=== PATIENT | male | born 1975 | race African-American/Black ===

== ENCOUNTER 2016-10-06 16:15 | Inpatient (IN) | payer OTHER ==
[2016-10-06 16:56] VITALS: BMI 25.0
--- NOTE | 2016-10-06 17:13 | HP ---
CIWA Score - CIWA Score Nausea/Vomitin-Mild Nausea/No Vomiting Muscle Tremors: 4-Moderate,w/Arms Extend Anxiety: 4-Mod. Anxious/Guarded Agitation: 4-Moderately Restless Paroxysmal Sweats: 1-Minimal Palms Moist Orientation: 3-Disoriented Date>2 days Tacttile Disturbances: 0-None Auditory Disturbances: 0-None Visual Disturbances: 0-None Headache: 0-None Present CIWA-Ar Total Score: 17 Admission ROS S - HPI Chief Complaint: withdrawal sx Allergies/Adverse Reactions: Allergies Allergy/AdvReac Type Severity Reaction Status Date / Time No Known Allergies Allergy Verified 10/24/15 11:36 History of Present Illness: 41 years old male with long history of alcohol nicotine dependence, denies medical denies psychiatric is admitted to detox Exam Limitations: No Limitations - Ebola screening Have you traveled outside of the country in the last 21 days: No (N) Have you had contact with anyone from an Ebola affected area: No Have you been sick,other than usual withdrawal symptoms: No Do you have a fever: No - Review of Systems Constitutional: Chills, Changes in sleep, Weight Stable EENT: reports: No Symptoms Reported Respiratory: reports: No Symptoms reported Cardiac: reports: No Symptoms Reported GI: reports: Nausea, Poor Fluid Intake, Abdominal cramping : reports: No Symptoms Reported Musculoskeletal: reports: No Symptoms Reported Integumentary: reports: No Symptoms Reported Neuro: reports: Tremors Endocrine: reports: No Symptoms Reported Hematology: reports: No Symptoms Reported Psychiatric: reports: Judgement Intact, Mood/Affect Appropiate Other Systems: Reviewed and Negative Patient History - Patient Medical History Hx Anemia: No Hx Asthma: No Hx Chronic Obstructive Pulmonary Disease (COPD): No Hx Cancer: No Hx Cardiac Disorders: No Hx Congestive Heart Failure: No Hx Hypertension: No (DUE TO DRINKING; NOW 152/103--NOT ON MEDS) Hx Hypercholesterolemia: No Hx Pacemaker: No HX Cerebrovascular Accident: No Hx Seizures: No Hx Dementia: No Hx Diabetes: No Hx Gastrointestinal Disorders: No (HEARTBURN-NOT ON MED) Hx Liver Disease: No Hx Genitourinary Disorders: No Hx Sexually Transmitted Disorders: No Hx Renal Disease (ESRD): No Hx Thyroid Disease: No Hx Human Immunodeficiency Virus (HIV): No (NEGATIVE HX) Hx Hepatitis C: No Hx Depression: No Hx Suicide Attempt: No (DENIES) Hx Bipolar Disorder: No Hx Schizophrenia: No - Patient Surgical History Past Surgical History: Yes Hx Neurologic Surgery: No Hx Cataract Extraction: No Hx Cardiac Surgery: No Hx Lung Surgery: No Hx Breast Surgery: No Hx Breast Biopsy: No Hx Abdominal Surgery: No Hx Appendectomy: No Hx Cholecystectomy: No Hx Genitourinary Surgery: No Hx Orthopedic Surgery: Yes (bilateral rotator cuff 1993) Anesthesia Reaction: No - PPD History Previous Implant?: Yes Documented Results: Negative w/proof Implanted On Prior [facility] Admission?: Yes Date: 10/26/15 Results: TBD PPD to be Administered?: No - Smoking Cessation Smoking history: Current every day smoker Have you smoked in the past 12 months: Yes Aproximately how many cigarettes per day: 10 Cigars Per Day: 0 Hx Chewing Tobacco Use: No Initiated information on smoking cessation: Yes 'Breaking Loose' booklet given: 10/06/16 - Substance & Tx. History Hx Alcohol Use: Yes Hx Substance Use: No Substance Use Type: Alcohol Hx Substance Use Treatment: Yes - Substances Abused Alcohol Route: Oral Frequency: Daily Amount used: 2 pints volka Age of first use: 16 Date of Last Use: 10/06/16 Family Disease History - Family Disease History Family Disease History: Diabetes: Grandparent, Other: Mother (HTN-) Admission Physical Exam BHS - Vital Signs Vital Signs: Vital Signs - 24 hr 10/06/16 16:54 Temperature 98.0 F Pulse Rate 93 H Respiratory 18 Rate Blood Pressure 163/113 - Physical General Appearance: Yes: Nourished, Appropriately Dressed, Moderate Distress, Tremorous, Irritable, Sweating, Anxious HEENTM: Yes: Hearing grossly Normal, Normal ENT Inspection, Normocephalic, Normal Voice Respiratory: Yes: Chest Non-Tender, Lungs Clear, Normal Breath Sounds, No Respiratory Distress, No Accessory Muscle Use Neck: Yes: Supple, Trachea in good position Breast: Yes: Breasts Symetrical Cardiology: Yes: Regular Rhythm, S1, S2, Tachycardia Abdominal: Yes: Non Tender, Soft Genitourinary: Yes: Within Normal Limits Back: Yes: Normal Inspection Musculoskeletal: Yes: full range of Motion, Gait Steady Extremities: Yes: Normal Inspection, Normal Range of Motion, Non-Tender, Tremors Neurological: Yes: Alert, Motor Strength 5/5, Normal Mood/Affect, Normal Response Integumentary: Yes: Warm Lymphatic: Yes: Within Normal Limits - Diagnostic (1) Alcohol dependence with uncomplicated withdrawal Current Visit: Yes Status: Acute (2) Nicotine dependence Current Visit: Yes Status: Acute Qualifiers: Nicotine product type: cigarettes Substance use status: in withdrawal Qualified Code(s): F17.213 - Nicotine dependence, cigarettes, with withdrawal (3) Hypertension Current Visit: Yes Status: Acute Qualifiers: Hypertension type: unspecified secondary hypertension Qualified Code (s): I15.9 - Secondary hypertension, unspecified; I15 - Secondary hypertension Comment: alcohol withdrawal related hypertension clonidine prn Cleared for Admission [facility] - Detox or Rehab [facility] Level of Care: Medically Managed Detox Regimen/Protocol: Librium S Breath Alcohol Content Breath Alcohol Content: 0 Urine Drug Screen - Results Drug Screen Negative: Yes
[2016-10-06] MEDS ORDERED: IBUPROFEN 400 MG TABLET (FP) PO PRN (17:20)
[2016-10-06] MEDS ORDERED: LOPERAMIDE HCL 2 MG CAPSULE PO PRN (17:20)
[2016-10-06] MEDS ORDERED: guaiFENesin/D-METHORPHAN HB 10 ML UNIT-DOSE CUPS PO PRN (17:20)
[2016-10-06] MEDS ORDERED: MAG HYDROX/AL HYDROX/SIMETH 30 ML UNIT-DOSE CUP PO PRN (17:20)
[2016-10-06] MEDS ORDERED: MENTHOL/PHENOL 1 EACH UD MM PRN (17:20)
[2016-10-06] MEDS ORDERED: chlordiazePOXIDE HCL 25 MG CAPSULE PO PRN (17:20)
[2016-10-06] MEDS ORDERED: ACETAMINOPHEN 325 MG TABLET (FP) PO PRN (17:20)
[2016-10-06] MEDS ORDERED: MAGNESIUM CITRATE 300 ML BOTTLE PO PRN (17:20)
[2016-10-06] MEDS ORDERED: P-EPHED 60MG/TRIPROLIDI 2.5MG TABLET PO PRN (17:20)
[2016-10-06] MEDS ORDERED: NICOTINE POLACRILEX 2 MG GUM BC PRN (17:20)
[2016-10-06] MEDS ORDERED: hydrOXYzine PAMOATE 50 MG CAPSULE (FP) PO PRN (17:20)
[2016-10-06] MEDS ORDERED: MAGNESIUM HYDROX 2400MG/30ML ORAL SUSPENSION 30 ML CUP PO PRN (17:20)
[2016-10-06] MEDS ORDERED: chlordiazePOXIDE HCL 25 MG CAPSULE PO ONE (18:15)
[2016-10-06] MEDS: cloNIDine HCL 0.1 MG TABLET PO PRN (18:42)
[2016-10-06] MEDS: chlordiazePOXIDE HCL 25 MG CAPSULE PO SCH (22:28)
[2016-10-06] MEDS: THIAMINE HCL 100 MG TABLET (FP) PO SCH (22:28)
[2016-10-06 23:34] LABS: URINE APPEARANCE CLEAR; URINE BILIRUBIN NEGATIVE (NEGATIVE); URINE BLOOD NEGATIVE (NEGATIVE); URINE COLOR YELLOW; URINE GLUCOSE (UA) NEGATIVE (NEGATIVE); URINE KETONE 1+ (NEGATIVE); URINE LEUK ESTERASE NEGATIVE (NEGATIVE); URINE NITRITE NEGATIVE (NEGATIVE); URINE PROTEIN NEGATIVE (NEGATIVE); URINE UROBILINOGEN NEGATIVE E.U./dl (0.2-1.0)
[2016-10-07] MEDS: chlordiazePOXIDE HCL 25 MG CAPSULE PO SCH ×4 (05:34→22:31)
[2016-10-07 10:06] LABS: MCH 31.5 pg (25.7-33.7); MCHC 32.9 g/dl (32.0-35.9); MEAN CELL VOLUME 95.7 fl (80-96); MEAN PLT VOLUME 8.2 fl (7.5-11.1); PLATELET COUNT 172 K/MM3 (134-434); RDW 13.8 % (11.9-15.9); WHITE BLOOD COUNT 3.7 K/mm3 (4.0-10.0)
--- NOTE | 2016-10-07 10:25 | EKG ---
Test Reason : Blood Pressure : / mmHG Vent. Rate : 078 BPM Atrial Rate : 078 BPM P-R Int : 152 ms QRS Dur : 104 ms QT Int : 376 ms P-R-T Axes : 059 -44 030 degrees QTc Int : 428 ms NORMAL SINUS RHYTHM POSSIBLE LEFT ATRIAL ENLARGEMENT LEFT AXIS DEVIATION PULMONARY DISEASE PATTERN ABNORMAL ECG NO PREVIOUS ECGS AVAILABLE Confirmed by MIGUELINA MELÉNDEZ MD ([id number]) on 10/07/2016 10:25:01 AM Referred By: Confirmed By:MIGUELINA MELÉNDEZ MD
[2016-10-07] MEDS: cloNIDine HCL 0.1 MG TABLET PO PRN (10:41)
[2016-10-07] MEDS: PRENATAL VITAMINS W/ FOLIC ACID TABLET (FP) PO SCH (10:41)
[2016-10-07] MEDS: NICOTINE 14 MG/24 HOURS TOPICAL PATCH TD SCH (10:41)
[2016-10-07 10:55] LABS: ALBUMIN 3.8 g/dl (3.4-5.0); ALK PHOS 85 U/L (45-117); ANION GAP 9 (8-16); BILIRUBIN,TOTAL 1.1 mg/dL (0.2-1.0); CALCIUM 8.8 mg/dL (8.5-10.1); CO2 28 mmol/L (21-32); COCKROFT - GAULT 144.22; CREATININE 0.8 mg/dL (0.7-1.3); GLUCOSE,RANDOM 89 mg/dL (74-106); SGOT/AST 37 U/L (15-37); SGPT/ALT 31 U/L (12-78); TOT PROT 6.1 g/dl (6.4-8.2)
--- NOTE | 2016-10-07 11:24 | PN ---
[facility] CIWA - CIWA Score Nausea/Vomitin Muscle Tremors: 3 Anxiety: 3 Agitation: 2 Paroxysmal Sweats: 1-Minimal Palms Moist Orientation: 0-Oriented Tacttile Disturbances: 1-Very Mild Itch/Numbness Auditory Disturbances: 1-Very Mild Visual Disturbances: 1-Very Mild Sensitivity Headache: 2-Mild CIWA-Ar Total Score: 17 S Progress Note (SOAP) Subjective: ALERT,IRRITABLE,ANXIOUS,INTERRUPTED SLEEP,TREMOR Objective: 10/07/16 11:21 Vital Signs Temperature 98.4 F 10/07/16 10:12 Pulse Rate 78 10/07/16 10:12 Respiratory Rate 18 10/07/16 10:12 Blood Pressure 143/100 10/07/16 10:16 O2 Sat by Pulse Oximetry (%) EKG NSR NO CHEST PAIN,NO SOB,NO DIZZINESS Laboratory Last Values WBC 3.7 K/mm3 (4.0-10.0) L D 10/07/16 07:00 RBC 4.61 M/mm3 (4.00-5.60) 10/07/16 07:00 Hgb 14.5 GM/dL (11.7-16.9) 10/07/16 07:00 Hct 44.1 % (35.4-49) 10/07/16 07:00 MCV 95.7 fl (80-96) 10/07/16 07:00 MCHC 32.9 g/dl (32.0-35.9) 10/07/16 07:00 RDW 13.8 % (11.9-15.9) 10/07/16 07:00 Plt Count 172 K/MM3 (134-434) 10/07/16 07:00 MPV 8.2 fl (7.5-11.1) 10/07/16 07:00 Sodium 139 mmol/L (136-145) 10/07/16 07:00 Potassium 4.1 mmol/L (3.5-5.1) 10/07/16 07:00 Chloride 102 mmol/L (98-107) 10/07/16 07:00 Carbon Dioxide 28 mmol/L (21-32) 10/07/16 07:00 Anion Gap 9 (8-16) 10/07/16 07:00 BUN 13 mg/dL (7-18) D 10/07/16 07:00 Creatinine 0.8 mg/dL (0.7-1.3) 10/07/16 07:00 Creat Clearance w eGFR > 60 (>60) 10/07/16 07:00 Random Glucose 89 mg/dL (74-106) 10/07/16 07:00 Calcium 8.8 mg/dL (8.5-10.1) 10/07/16 07:00 Total Bilirubin 1.1 mg/dL (0.2-1.0) H D 10/07/16 07:00 AST 37 U/L (15-37) D 10/07/16 07:00 ALT 31 U/L (12-78) D 10/07/16 07:00 Alkaline Phosphatase 85 U/L (45-117) 10/07/16 07:00 Total Protein 6.1 g/dl (6.4-8.2) L 10/07/16 07:00 Albumin 3.8 g/dl (3.4-5.0) 10/07/16 07:00 Urine Color Yellow 10/06/16 18:42 Urine Appearance Clear 10/06/16 18:42 Urine pH 5.0 (5.0-8.0) 10/06/16 18:42 Ur Specific [place] 1.025 (1.005-1.025) 10/06/16 18:42 Urine Protein Negative (NEGATIVE) 10/06/16 18:42 Urine Glucose (UA) Negative (NEGATIVE) 10/06/16 18:42 Urine Ketones 1+ (NEGATIVE) H 10/06/16 18:42 Urine Blood Negative (NEGATIVE) 10/06/16 18:42 Urine Nitrite Negative (NEGATIVE) 10/06/16 18:42 Urine Bilirubin Negative (NEGATIVE) 10/06/16 18:42 Urine Urobilinogen Negative E.U./dl (0.2-1.0) 10/06/16 18:42 Ur Leukocyte Esterase Negative (NEGATIVE) 10/06/16 18:42 Assessment: 10/07/16 11:22 WITHDRAWAL SYMPTOM Plan: CONTINUE DETOX,HISTORY OF HYPERTENSION,DYAZIDE 1 CAP PO DAILY,BP MONITORING
[2016-10-07] MEDS: TRIAMTERENE AND HCTZ - 37.5 MG/25 MG CAPSULE PO SCH (13:00)
[2016-10-07] MEDS: diphenhydrAMINE HCL 50 MG CAPSULE PO PRN (22:31)
[2016-10-07] MEDS: THIAMINE HCL 100 MG TABLET (FP) PO SCH (22:31)
[2016-10-08] MEDS: chlordiazePOXIDE HCL 25 MG CAPSULE PO SCH ×3 (05:33→17:14)
--- NOTE | 2016-10-08 10:09 | PN ---
S CIWA - CIWA Score Nausea/Vomitin-No Nausea/No Vomiting Muscle Tremors: 3 Anxiety: 4-Mod. Anxious/Guarded Agitation: 3 Paroxysmal Sweats: 3 Orientation: 0-Oriented Tacttile Disturbances: 0-None Auditory Disturbances: 0-None Visual Disturbances: 0-None Headache: 0-None Present CIWA-Ar Total Score: 13 BHS Progress Note (SOAP) Subjective: Sweating,interrupted sleep,restless,tremors,anxiety. Objective: 10/08/16 10:08 Vital Signs - 8 hr 10/08/16 10/08/16 10/08/16 03:23 06:12 09:28 Temperature 97.3 F L 96.7 F L Pulse Rate 69 82 Respiratory 18 18 18 Rate Blood Pressure 134/88 132/99 Laboratory Tests 10/06/16 10/07/16 10/07/16 18:42 07:00 07:00 WBC 3.7 L D RBC 4.61 Hgb 14.5 Hct 44.1 MCV 95.7 MCHC 32.9 RDW 13.8 Plt Count 172 MPV 8.2 Sodium 139 Potassium 4.1 Chloride 102 Carbon Dioxide 28 Anion Gap 9 BUN 13 D Creatinine 0.8 Creat Clearance w eGFR > 60 Random Glucose 89 Calcium 8.8 Total Bilirubin 1.1 H D AST 37 D ALT 31 D Alkaline Phosphatase 85 Total Protein 6.1 L Albumin 3.8 Urine Color Yellow Urine Appearance Clear Urine pH 5.0 Ur Specific [place] 1.025 Urine Protein Negative Urine Glucose (UA) Negative Urine Ketones 1+ H Urine Blood Negative Urine Nitrite Negative Urine Bilirubin Negative Urine Urobilinogen Negative Ur Leukocyte Esterase Negative RPR Titer 10/07/16 07:00 WBC RBC Hgb Hct MCV MCHC RDW Plt Count MPV Sodium Potassium Chloride Carbon Dioxide Anion Gap BUN Creatinine Creat Clearance w eGFR Random Glucose Calcium Total Bilirubin AST ALT Alkaline Phosphatase Total Protein Albumin Urine Color Urine Appearance Urine pH Ur Specific [place] Urine Protein Urine Glucose (UA) Urine Ketones Urine Blood Urine Nitrite Urine Bilirubin Urine Urobilinogen Ur Leukocyte Esterase RPR Titer Nonreactive labs noted Assessment: 10/08/16 10:08 Withdrawal sx. Plan: Continue detox
[2016-10-08] MEDS: cloNIDine HCL 0.1 MG TABLET PO PRN (10:42)
[2016-10-08] MEDS: NICOTINE 14 MG/24 HOURS TOPICAL PATCH TD SCH (10:42)
[2016-10-08] MEDS: PRENATAL VITAMINS W/ FOLIC ACID TABLET (FP) PO SCH (10:42)
[2016-10-08] MEDS: TRIAMTERENE AND HCTZ - 37.5 MG/25 MG CAPSULE PO SCH (10:42)
[2016-10-08] MEDS: THIAMINE HCL 100 MG TABLET (FP) PO SCH (22:32)
[2016-10-08] MEDS: diphenhydrAMINE HCL 50 MG CAPSULE PO PRN (22:32)
[2016-10-08] MEDS: chlordiazePOXIDE 5 MG CAPSULE PO SCH (22:33)
[2016-10-09] MEDS: chlordiazePOXIDE 5 MG CAPSULE PO SCH ×3 (05:27→17:21)
[2016-10-09] MEDS: TRIAMTERENE AND HCTZ - 37.5 MG/25 MG CAPSULE PO SCH (10:33)
[2016-10-09] MEDS: NICOTINE 14 MG/24 HOURS TOPICAL PATCH TD SCH (10:33)
[2016-10-09] MEDS: PRENATAL VITAMINS W/ FOLIC ACID TABLET (FP) PO SCH (10:33)
--- NOTE | 2016-10-09 13:59 | PN ---
BHS Progress Note (SOAP) Subjective: Sweating,interrupted sleep,restless. Objective: 10/09/16 13:58 Vital Signs - 8 hr 10/09/16 10/09/16 10/09/16 06:16 09:49 13:09 Temperature 97.6 F 96.5 F L 96.4 F L Pulse Rate 75 103 H 96 H Respiratory 18 18 20 Rate Blood Pressure 117/80 118/84 124/84 Laboratory Last Values WBC 3.7 K/mm3 (4.0-10.0) L D 10/07/16 07:00 RBC 4.61 M/mm3 (4.00-5.60) 10/07/16 07:00 Hgb 14.5 GM/dL (11.7-16.9) 10/07/16 07:00 Hct 44.1 % (35.4-49) 10/07/16 07:00 MCV 95.7 fl (80-96) 10/07/16 07:00 MCHC 32.9 g/dl (32.0-35.9) 10/07/16 07:00 RDW 13.8 % (11.9-15.9) 10/07/16 07:00 Plt Count 172 K/MM3 (134-434) 10/07/16 07:00 MPV 8.2 fl (7.5-11.1) 10/07/16 07:00 Sodium 139 mmol/L (136-145) 10/07/16 07:00 Potassium 4.1 mmol/L (3.5-5.1) 10/07/16 07:00 Chloride 102 mmol/L (98-107) 10/07/16 07:00 Carbon Dioxide 28 mmol/L (21-32) 10/07/16 07:00 Anion Gap 9 (8-16) 10/07/16 07:00 BUN 13 mg/dL (7-18) D 10/07/16 07:00 Creatinine 0.8 mg/dL (0.7-1.3) 10/07/16 07:00 Creat Clearance w eGFR > 60 (>60) 10/07/16 07:00 Random Glucose 89 mg/dL (74-106) 10/07/16 07:00 Calcium 8.8 mg/dL (8.5-10.1) 10/07/16 07:00 Total Bilirubin 1.1 mg/dL (0.2-1.0) H D 10/07/16 07:00 AST 37 U/L (15-37) D 10/07/16 07:00 ALT 31 U/L (12-78) D 10/07/16 07:00 Alkaline Phosphatase 85 U/L (45-117) 10/07/16 07:00 Total Protein 6.1 g/dl (6.4-8.2) L 10/07/16 07:00 Albumin 3.8 g/dl (3.4-5.0) 10/07/16 07:00 Urine Color Yellow 10/06/16 18:42 Urine Appearance Clear 10/06/16 18:42 Urine pH 5.0 (5.0-8.0) 10/06/16 18:42 Ur Specific [place] 1.025 (1.005-1.025) 10/06/16 18:42 Urine Protein Negative (NEGATIVE) 10/06/16 18:42 Urine Glucose (UA) Negative (NEGATIVE) 10/06/16 18:42 Urine Ketones 1+ (NEGATIVE) H 10/06/16 18:42 Urine Blood Negative (NEGATIVE) 10/06/16 18:42 Urine Nitrite Negative (NEGATIVE) 10/06/16 18:42 Urine Bilirubin Negative (NEGATIVE) 10/06/16 18:42 Urine Urobilinogen Negative E.U./dl (0.2-1.0) 10/06/16 18:42 Ur Leukocyte Esterase Negative (NEGATIVE) 10/06/16 18:42 RPR Titer Nonreactive (NONREACTIVE) 10/07/16 07:00 labs noted Assessment: 10/09/16 13:59 Withdrawal sx. Plan: Continue detox
[2016-10-09 16:48] VITALS: BP 103/67; PULSE 86; TEMP 97.7
--- NOTE | 2016-10-09 22:03 | DS ---
[facility] Detox Discharge Summary Admission Date: 10/06/16 Discharge Date: 10/09/16 - History Present History: Alcohol Dependence Additional Comments: PATIENT INSISTS TO LEAVE THE UNIT REFUSES WAIT FACE TO FACE WITH THE PROVIDER Pertinent Past History: HYPERTENSION - Physical Exam Results Vital Signs: Vital Signs Temperature 97.7 F 10/09/16 16:47 Pulse Rate 86 10/09/16 16:47 Respiratory Rate 19 10/09/16 16:47 Blood Pressure 103/67 10/09/16 16:47 O2 Sat by Pulse Oximetry (%) Pertinent Admission Physical Exam Findings: WITHDRAWAL SX Laboratory Last Values WBC 3.7 K/mm3 (4.0-10.0) L D 10/07/16 07:00 RBC 4.61 M/mm3 (4.00-5.60) 10/07/16 07:00 Hgb 14.5 GM/dL (11.7-16.9) 10/07/16 07:00 Hct 44.1 % (35.4-49) 10/07/16 07:00 MCV 95.7 fl (80-96) 10/07/16 07:00 MCHC 32.9 g/dl (32.0-35.9) 10/07/16 07:00 RDW 13.8 % (11.9-15.9) 10/07/16 07:00 Plt Count 172 K/MM3 (134-434) 10/07/16 07:00 MPV 8.2 fl (7.5-11.1) 10/07/16 07:00 Sodium 139 mmol/L (136-145) 10/07/16 07:00 Potassium 4.1 mmol/L (3.5-5.1) 10/07/16 07:00 Chloride 102 mmol/L (98-107) 10/07/16 07:00 Carbon Dioxide 28 mmol/L (21-32) 10/07/16 07:00 Anion Gap 9 (8-16) 10/07/16 07:00 BUN 13 mg/dL (7-18) D 10/07/16 07:00 Creatinine 0.8 mg/dL (0.7-1.3) 10/07/16 07:00 Creat Clearance w eGFR > 60 (>60) 10/07/16 07:00 Random Glucose 89 mg/dL (74-106) 10/07/16 07:00 Calcium 8.8 mg/dL (8.5-10.1) 10/07/16 07:00 Total Bilirubin 1.1 mg/dL (0.2-1.0) H D 10/07/16 07:00 AST 37 U/L (15-37) D 10/07/16 07:00 ALT 31 U/L (12-78) D 10/07/16 07:00 Alkaline Phosphatase 85 U/L (45-117) 10/07/16 07:00 Total Protein 6.1 g/dl (6.4-8.2) L 10/07/16 07:00 Albumin 3.8 g/dl (3.4-5.0) 10/07/16 07:00 Urine Color Yellow 10/06/16 18:42 Urine Appearance Clear 10/06/16 18:42 Urine pH 5.0 (5.0-8.0) 10/06/16 18:42 Ur Specific [place] 1.025 (1.005-1.025) 10/06/16 18:42 Urine Protein Negative (NEGATIVE) 10/06/16 18:42 Urine Glucose (UA) Negative (NEGATIVE) 10/06/16 18:42 Urine Ketones 1+ (NEGATIVE) H 10/06/16 18:42 Urine Blood Negative (NEGATIVE) 10/06/16 18:42 Urine Nitrite Negative (NEGATIVE) 10/06/16 18:42 Urine Bilirubin Negative (NEGATIVE) 10/06/16 18:42 Urine Urobilinogen Negative E.U./dl (0.2-1.0) 10/06/16 18:42 Ur Leukocyte Esterase Negative (NEGATIVE) 10/06/16 18:42 RPR Titer Nonreactive (NONREACTIVE) 10/07/16 07:00 LAB NOTED - Treatment Hospital Course: Detox Protocol Followed, Responded well - Medication Discharge Medications: Ambulatory Orders NK [No Known Home Medication] 10/24/15 - Diagnosis (1) Alcohol dependence with uncomplicated withdrawal Status: Acute (2) Nicotine dependence Status: Acute Qualifiers: Nicotine product type: cigarettes Substance use status: in withdrawal Qualified Code(s): F17.213 - Nicotine dependence, cigarettes, with withdrawal (3) Hypertension Status: Chronic Qualifiers: Hypertension type: unspecified secondary hypertension Qualified Code (s): I15.9 - Secondary hypertension, unspecified; I15 - Secondary hypertension - AMA Did Patient Leave Against Medical Advice: Yes
[2016-10-09] MEDS ORDERED: chlordiazePOXIDE HCL 10 MG CAPSULE PO SCH (23:00)
== END 2016-10-09 18:38 | disposition left against medical advice (07) | DRG 770 ==
LOC: YASAS 16:15 → Y3N 18:02
PROVIDERS: ADMIT Internal Medicine; ATTEND Internal Medicine
PROC: HZ2ZZZZ Detoxification Services for Substance Abuse Treatment (ICD-10-PCS; principal; 2016-10-09)
DX: F10.230 Alcohol dependence with withdrawal, uncomplicated (principal); F17.213 Nicotine dependence, cigarettes, with withdrawal; I15.9 Secondary hypertension, unspecified; Z59.0 Homelessness
CPT/HCPCS: 36415; 80053; 81003; 85027; 86593; 93005; 93010